=== PATIENT | female | born 1955 | race Caucasian/White ===

== ENCOUNTER 2023-03-28 07:19 | Observation (INO) ==
--- NOTE | 2023-02-23 12:33 | PAT Medication Instructions ---
Medication Instructions Date of Service February 23, 2023 Home Medications albuterol sulfate 90 mcg/actuation aerosol inhaler (Ventolin HFA) 2 puff inhalation Q6H PRN alprazolam 0.25 mg tablet 0.25 mg PO UD aspirin 81 mg tablet,delayed release 81 mg PO QAM budesonide 0.5 mg/2 mL suspension for nebulization 0.5 mg inhalation DAILY carvedilol 3.125 mg tablet 3.125 mg PO BID empagliflozin 10 mg tablet (Jardiance) 5 mg PO QAM lactase 3,000 unit tablet (Lactaid) 3,000 unit PO UD PRN levocetirizine 5 mg tablet (Xyzal) 5 mg PO HS losartan 100 mg tablet 100 mg PO QAM pantoprazole 40 mg tablet,delayed release 40 mg PO QAM potassium chloride 10 mEq capsule,extended release 20 meq PO BID rosuvastatin 20 mg tablet (Crestor) 20 mg PO 3XWK tiotropium bromide 2.5 mcg/actuation mist for inhalation (Spiriva Respimat) 2 puff inhalation QAM Lactobacillus acidophilus 10 billion cell capsule (Probiotic) 10,000 mmu cells PO HS acetaminophen 650 mg tablet,extended release 650 mg PO TID PRN alendronate 70 mg tablet (Fosamax) 70 mg PO WK benzonatate 200 mg capsule 200 mg PO BID PRN calcium 600 mg capsule 600 mg PO QAM carboxymethylcellulose sodium 1 % eye liquid gel drops 1 drp ophthalmic (eye) BID PRN cholecalciferol (vitamin D3) 125 mcg (5,000 unit) tablet (Vitamin D3) 125 mcg PO QAM coQ10 (ubiquinol) 200 mg capsule 400 mg PO QAM conjugated estrogens 0.625 mg/gram vaginal cream (Premarin) 0.625 mg vaginal 2XWK cyanocobalamin (vitamin B-12) 2,500 mcg tablet 2,500 mcg PO UD diclofenac sodium 1 % topical gel 2 g topical QID PRN diphenhydramine HCl 25 mg capsule (Benadryl) 25 mg PO TID PRN fiber 1 tab PO HS 02/22/23 [History Confirmed 02/22/23] fluticasone propionate 50 mcg/actuation nasal spray,suspension 1 spray intranasal BID lifitegrast 5 % eye drops in a dropperette (Xiidra) 1 drp ophthalmic (eye) AMPM salmeterol 50 mcg/dose blister powder for inhalation (Serevent Diskus) 1 inh inh alation BID triamcinolone acetonide 0.025 % topical cream 1 applic topical BID STOP 3 days before surgery empagliflozin 10 mg tablet (Jardiance) 5 mg PO QAM Continue as directed alprazolam 0.25 mg tablet 0.25 mg PO UD budesonide 0.5 mg/2 mL suspension for nebulization 0.5 mg inhalation DAILY rosuvastatin 20 mg tablet (Crestor) 20 mg PO 3XWK STOP taking 2 weeks before surgery (or as soon as possible if surgery is within 2 weeks) coQ10 (ubiquinol) 200 mg capsule 400 mg PO QAM STOP taking 24 hours before surgery conjugated estrogens 0.625 mg/gram vaginal cream (Premarin) 0.625 mg vaginal 2XWK diclofenac sodium 1 % topical gel 2 g topical QID PRN triamcinolone acetonide 0.025 % topical cream 1 applic topical BID DO NOT take the morning of surgery lactase 3,000 unit tablet (Lactaid) 3,000 unit PO UD PRN losartan 100 mg tablet 100 mg PO QAM potassium chloride 10 mEq capsule,extended release 20 meq PO BID alendronate 70 mg tablet (Fosamax) 70 mg PO WK benzonatate 200 mg capsule 200 mg PO BID PRN calcium 600 mg capsule 600 mg PO QAM cholecalciferol (vitamin D3) 125 mcg (5,000 unit) tablet (Vitamin D3) 125 mcg PO QAM cyanocobalamin (vitamin B-12) 2,500 mcg tablet 2,500 mcg PO UD diphenhydramine HCl 25 mg capsule (Benadryl) 25 mg PO TID PRN Take morning of surgery With a small sip of water, OTHERWISE NOTHING TO EAT OR DRINK AFTER MIDNIGHT: albuterol sulfate 90 mcg/actuation aerosol inhaler (Ventolin HFA) 2 puff inhalation Q6H PRN(use if needed; please bring with you to hospital day of surgery if possible) aspirin 81 mg tablet,delayed release 81 mg PO QAM (unless directed otherwise by surgeon) carvedilol 3.125 mg tablet 3.125 mg PO BID pantoprazole 40 mg tablet,delayed release 40 mg PO QAM tiotropium bromide 2.5 mcg/actuation mist for inhalation (Spiriva Respimat) 2 puff inhalation QAM acetaminophen 650 mg tablet,extended release 650 mg PO TID PRN(if needed) carboxymethylcellulose sodium 1 % eye liquid gel drops 1 drp ophthalmic (eye) BID PRN(if needed) fluticasone propionate 50 mcg/actuation nasal spray,suspension 1 spray intranasal BID lifitegrast 5 % eye drops in a dropperette (Xiidra) 1 drp ophthalmic (eye) AMPM salmeterol 50 mcg/dose blister powder for inhalation (Serevent Diskus) 1 inh inhalation BID Take evening before surgery albuterol sulfate 90 mcg/actuation aerosol inhaler (Ventolin HFA) 2 puff inhalation Q6H PRN(if needed) carvedilol 3.125 mg tablet 3.125 mg PO BID levocetirizine 5 mg tablet (Xyzal) 5 mg PO HS potassium chloride 10 mEq capsule,extended release 20 meq PO BID Lactobacillus acidophilus 10 billion cell capsule (Probiotic) 10,000 mmu cells PO HS acetaminophen 650 mg tablet,extended release 650 mg PO TID PRN(if needed) benzonatate 200 mg capsule 200 mg PO BID PRN(if needed) carboxymethylcellulose sodium 1 % eye liquid gel drops 1 drp ophthalmic (eye) BID PRN(if needed) diphenhydramine HCl 25 mg capsule (Benadryl) 25 mg PO TID PRN(if needed) fluticasone propionate 50 mcg/actuation nasal spray,suspension 1 spray intranasal BID lifitegrast 5 % eye drops in a dropperette (Xiidra) 1 drp ophthalmic (eye) AMPM salmeterol 50 mcg/dose blister powder for inhalation (Serevent Diskus) 1 inh inhalation BID Other Notes If you have any questions please call us at [phone] or [phone] or [phone] or [phone]
--- NOTE | 2023-03-02 09:52 | Anesthesiology Consultation ---
Date of Service March 02, 2023 Assessment & Plan (1) Encounter for pre-operative examination: Chart Review Chart Review: Acceptable Risk for Surgery (pending 2019 ECHO ) and Patient seen in Pre Admission Testing - Please fax for ECHO from 2019 ([facility] or [facility]) - Discussed anesthesia history with Dr. Calvo- patient can proceed as scheduled - Pt is NOT an ideal OPJ candidate due to comorbidities - Check BSG AM DOS Per PAT appt on 03/02/23, patient denies any recent travel or large group activities. Pt is vaccinated for Covid. Will leave to surgeon's discretion if preop Covid testing needed. Educated on importance of using Covid precautions one week prior to surgery Pt last seen by cardio 03/25/22= seen for follow up on CAD. Stable from cardiac standpoint. EKG in office reviewed- unchanged from previous. Denies complaints of angina and no evidence of volume overload. BP controlled. Congratulated on 10lb weight loss. Remain active/exercise as tolerated. LDL well controlled on statin. Continue current meds. Give the patient's clinical stability- no new non invasive tests ordered at this time Teaching & Discussion Pre-Anesthesia Teaching/Discussion Notes: Instructed NPO after midnight before surgery,except medications with 15 cc of water. Medication instructions provided according to the PAT guidelines. History Surgery Operation Date: 03/28/23 10:30 Proposed Procedures p Right Reverse Total Shoulder Arthroplasty - Junito Hwang, Height/Weight Height: 5 ft 1 in Weight: 61.9 kg Allergies Allergy/AdvReac Type Severity Reaction Status Date / Time phenazopyridine [From Azo] Allergy Severe swollen Verified 02/22/23 13:11 throat biotin Allergy Intermediate Rash Verified 01/26/23 10:53 lisinopril Allergy Intermediate cough Verified 02/22/23 13:11 montelukast [From Singulair] Allergy Mild Rash/dizzy Verified 02/22/23 13:11 nitrofurantoin Allergy Mild rash Verified 02/22/23 13:11 [From Macrobid] oxycodone Allergy Mild Vomiting Verified 02/22/23 13:11 lactose AdvReac Mild stomach Verified 02/22/23 13:11 pains Medications Home Medications Medication Instructions Recorded Confirmed Last Taken albuterol sulfate 90 mcg/actuation 2 puff inhalation Q6H PRN SOB 01/26/23 02/22/23 Unknown aerosol inhaler (Ventolin HFA) alprazolam 0.25 mg tablet 0.25 mg PO UD 01/26/23 02/22/23 Unknown aspirin 81 mg tablet,delayed 81 mg PO QAM 01/26/23 02/22/23 Unknown release budesonide 0.5 mg/2 mL suspension 0.5 mg inhalation DAILY 01/26/23 02/22/23 Unknown for nebulization carvedilol 3.125 mg tablet 3.125 mg PO BID 01/26/23 02/22/23 Unknown empagliflozin 10 mg tablet 5 mg PO QAM 01/26/23 02/22/23 Unknown (Jardiance) lactase 3,000 unit tablet (Lactaid) 3,000 unit PO UD PRN EATING MILK 01/26/23 02/22/23 Unknown PRODUCTS levocetirizine 5 mg tablet (Xyzal) 5 mg PO HS 01/26/23 02/22/23 Unknown losartan 100 mg tablet 100 mg PO QAM 01/26/23 02/22/23 Unknown pantoprazole 40 mg tablet,delayed 40 mg PO QAM 01/26/23 02/22/23 Unknown release potassium chloride 10 mEq 20 meq PO BID 01/26/23 02/22/23 Unknown capsule,extended release rosuvastatin 20 mg tablet (Crestor) 20 mg PO 3XWK 01/26/23 02/22/23 Unknown tiotropium bromide 2.5 2 puff inhalation QAM 01/26/23 02/22/23 Unknown mcg/actuation mist for inhalation (Spiriva Respimat) Lactobacillus acidophilus 10 10,000 mmu cells PO HS 02/22/23 02/22/23 Unknown billion cell capsule (Probiotic) acetaminophen 650 mg 650 mg PO TID PRN Pain 02/22/23 02/22/23 Unknown tablet,extended release alendronate 70 mg tablet (Fosamax) 70 mg PO WK 02/22/23 02/22/23 Unknown benzonatate 200 mg capsule 200 mg PO BID PRN Cough 02/22/23 02/22/23 Unknown calcium 600 mg capsule 600 mg PO QAM 02/22/23 02/22/23 Unknown carboxymethylcellulose sodium 1 % 1 drp ophthalmic (eye) BID PRN . 02/22/23 02/22/23 Unknown eye liquid gel drops cholecalciferol (vitamin D3) 125 125 mcg PO QAM 02/22/23 02/22/23 Unknown mcg (5,000 unit) tablet (Vitamin D3) coQ10 (ubiquinol) 200 mg capsule 400 mg PO QAM 02/22/23 02/22/23 Unknown conjugated estrogens 0.625 mg/gram 0.625 mg vaginal 2XWK 02/22/23 02/22/23 Unknown vaginal cream (Premarin) cyanocobalamin (vitamin B-12) 2,500 mcg PO UD 02/22/23 02/22/23 Unknown 2,500 mcg tablet diclofenac sodium 1 % topical gel 2 g topical QID PRN Pain 02/22/23 02/22/23 Unknown diphenhydramine HCl 25 mg capsule 25 mg PO TID PRN Itching 02/22/23 02/22/23 Unknown (Benadryl) fiber 1 tab PO HS 02/22/23 02/22/23 Unknown fluticasone propionate 50 1 spray intranasal BID 02/22/23 02/22/23 Unknown mcg/actuation nasal spray,suspension lifitegrast 5 % eye drops in a 1 drp ophthalmic (eye) AMPM 02/22/23 02/22/23 Unknown dropperette (Xiidra) salmeterol 50 mcg/dose blister 1 inh inhalation BID 02/22/23 02/22/23 Unknown powder for inhalation (Serevent Diskus) triamcinolone acetonide 0.025 % 1 applic topical BID 02/22/23 02/22/23 Unknown topical cream Past Medical History Medical History (Updated 03/02/23 @ 11:31 by Valeria Ornelas PA-C) Aortic valve sclerosis Asthma HAS NOT USED RESCUE INHALER RECENTLY Breathing controlled CAD (coronary artery disease) No stents or bypass Per cardio records- cardiac cath in 2009- showed "LM ok, LAD 20, LCx ok, RC A20; EF 40% ant., AL and inf HK, no MR Cardiac murmur FOLLOWS WITH JAS RICHARDS No significant murmur noted at 03/02/23 PAT appt Diabetes mellitus, type 2 Glucose controlled Diabetic neuropathy Mostly to feet- occ to hands Dry eye syndrome GERD (gastroesophageal reflux disease) Well controlled and stable Hiatal hernia Hyperlipidemia Hypertension Lactose intolerance Myocardial Infarction X 2 *AT AGE 42 (IN 1996) AND 2009 (both NSTEMIs per records) Stress incontinence Exercise / Class Metabolic Activity II 4-5 Yardwork/Stairs/Walk up hill (ONE FLIGHT OF STAIRS - NO CHEST PAIN OR SOB ) Past Family History Family History Other No family history of adverse response to anesthesia Past Surgical History Surgical History (Updated 03/02/23 @ 14:27 by Valeria Ornelas PA-C) Chalazion left eye, unspecified eyelid CYST REMOVED H/O bilateral oophorectomy H/O detached retina repair RT H/O elbow surgery LEFT ULNAR NERVE RELEASE H/O nasal septoplasty H/O: hysterectomy [facility]- HAD LOCAL ANESTHESIA WITH SEDATION TO ELBOW - FELT PARALYZED WITH FULL BODY - NO ISSUES WITH PRIOR SURGERIES (ANESTHESIA RECORDED SCANNED INTO CHART FROM 1999) - ONE EPISODE OF VOMITING DURING SURGERY (HYSTERECTOMY/SACRICILOPEXY MESH) DUE TO PAIN MEDICATION PER PATIENT History of bilateral tubal ligation History of bladder surgery BLADDER TACK WITH MESH History of cardiac cath X 3 (LAST 2009 AT [facility]) NO STENTS History of cataract surgery RT/LEFT History of cholecystectomy History of colonoscopy History of dilatation and curettage X 2 History of esophagogastroduodenoscopy (EGD) History of tonsillectomy [place] teeth removed Past Anesthesia History No Hx of Anesthesia Complications (WITH EXCEPTION TO 1999 SURGERY ) and No Family Hx of Anesthesia Complications History of PONV No Hx of Motion Sickness and History of PONV Social History Smoking Status: Never smoker Hx Alcohol Use: Yes Alcohol type: wine alcohol intake frequency: holidays/special occasions only substance use type: does not use Review of Systems Hx of snoring- no witnessed apnea - hx of sleep study years ago- no CHAPIS Patient denies chest pain, shortness of breath, dyspnea on exertion, cough, wheezing, palpitations. No hx of seizures, stroke. No hx of blood clots or blood transfusions Physical Exam Vital Signs VITALS BP 139/78 P 61 TEMP 97.4 SP02 95% RESP 16 Constitutional no acute distress ENMT Mouth: no TMJ clicking Thyromental Distance: < 3.5 Finger Breadths (3.0) Mallampati Class: I Mouth / Teeth: 1. Permanent implant Neck neck extension not limited Respiratory normal respiratory effort; no respiratory distress Auscultation: lungs clear to auscultation bilaterally; no wheezes Cardiovascular Rate/Rhythm: regular rate and regular rhythm Heart Sounds: no murmur Vessels: no carotid bruit Musculoskeletal Spine: no pain with cervical ROM Extremities: extremities normal to inspection Psychiatric Orientation: alert Lab Results Anesthesia Preop Results Results Anesthesia Widget: WBC 5.95 K/ul (4.8-10.8) 03/02/23 Hgb 13.7 g/dl (12.0-16.0) 03/02/23 Hct 41.2 % (37.0-47.0) 03/02/23 Plt 205 K/uL (130-400) 03/02/23 Na 141 mmol/L (136-145) 03/02/23 K 4.7 mmol/L (3.5-5.1) 03/02/23 Cl 110 mmol/L (98-107) H 03/02/23 CO2 25 mmol/L (21-32) 03/02/23 BUN 18 mg/dl (6-23) 03/02/23 Creat 0.74 mg/dl (0.6-1.2) 03/02/23 Glucose Level 95 mg/dl (70-99(Fasting)) 03/02/23 PT 11.0 Seconds (9.0-12.0) 03/02/23 PTT 27.7 Seconds (21.0-31.0) 03/02/23 INR 1.0 (0.9-1.1) 03/02/23 HA1c 6.2 % (4.5-5.6) H 03/02/23 Blood Type A Positive 03/02/23 Antibody Screen NEGATIVE 03/02/23 Testing Electrocardiogram Date: 03/02/23 Findings: + SB @ (51bpm) Otherwise normal EKG per cardio Chest X-Ray Date: 03/02/23 Findings: + NAD FINDINGS: PA and lateral chest radiographs are obtained. No prior studies are available for comparison at the time of dictation. The cardiomediastinal silhouette is unremarkable. The lungs and pleural spaces are clear. There is no pneumothorax. The skeletal structures are osteopenic. The bony thorax appears intact. Cholecystectomy clips are noted in the right upper quadrant. IMPRESSION: No active disease in the chest. COVID-19 Risk Screen Screening Information COVID-19 Screen Date: 03/02/23 Exposure 21 Days Family/Household +COVID Last 21 Days: No Exposure 10 Days Any COVID Exposure Last 10 Days: No Symptoms Last 10 Days Experienced COVID Sx Last 10 Days: No + COVID 0-90 Days COVID + in Last 0-90 Days: No Risk Plan COVID Risk Plan: No Risk Identified Patient Education COVID Preop Screening Education Complete: Yes
[~2023-03-28 07:19] MED LIST: ACETAMINOPHEN 500 MG TAB PO SCH; BUPIVACAINE 0.5 % 5 MG/1 ML PF 10ML VIAL ONE; FAMOTIDINE 20 MG TAB PO SCH; GABAPENTIN 300 MG CAP PO SCH; LR 15ML/HR IV SCH; LR 60ML/HR IV SCH; ORTHO JOINT MIX INFIL SCH; TRANEXAMIC ACID 1,000 MG **IV Intra-op IV SCH; TRANEXAMIC ACID 1,000 MG **IV Pre-op IV SCH; ceFAZolin 2000MG 2,000 MG/15 ML SYR IV SCH; dexAMETHasone 4 MG TAB PO SCH
[2023-03-28] MEDS ORDERED: DEXAMETHASONE SOD INJ 4 MG/ML VIAL ONE (08:19)
[2023-03-28] MEDS ORDERED: MIDAZOLAM HCL 1 MG/ML 2ML VIAL ONE (08:19)
[2023-03-28] MEDS ORDERED: GLYCOPYRROLATE 0.2 MG/ML VIAL ONE (08:19)
[2023-03-28] MEDS ORDERED: fentaNYL citrate PF 100 MCG/2 ML VIAL ONE (08:19)
[2023-03-28] MEDS ORDERED: ONDANSETRON INJ 2 MG/ML 2 ML VIAL ONE (08:19)
--- NOTE | 2023-03-28 09:15 | History & Physical Bridge Note ---
Date of Service March 28, 2023 History & Physical Bridge Note I have examined the patient, reviewed the History & Physical and in the interval since the performance of the History & Physical I have noted the following changes of clinical significance: no changes noted
[2023-03-28] MEDS ORDERED: ORTHO JOINT ANESTHETIC ONE (10:01)
[2023-03-28] MEDS ORDERED: PROMETHAZINE HCL 6.25 MG in SODIUM CHLORIDE 0.9% 50 ML IV PRN (10:07)
[2023-03-28] MEDS ORDERED: KETOROLAC 30 MG/ML VIAL IV PRN (10:07)
[2023-03-28] MEDS ORDERED: ONDANSETRON INJ 2 MG/ML 2 ML VIAL IV PRN ×2 (10:07→12:56)
[2023-03-28] MEDS ORDERED: fentaNYL citrate PF 100 MCG/2 ML VIAL IV PRN (10:07)
[2023-03-28] MEDS ORDERED: ATROPINE SULFATE 0.1 MG/ML 10ML SYR IV PRN (10:07)
[2023-03-28] MEDS ORDERED: SUGAMMADEX SODIUM 200 MG/2 ML VIAL IV ONE (10:54)
[2023-03-28] MEDS ORDERED: ROCURONIUM BROMIDE 10 MG/ML 5 ML VIAL IV ONE (10:54)
--- NOTE | 2023-03-28 12:39 | Anesthesiology Progress Note ---
Date of Service March 28, 2023 Anesthesia Post Procedure Vital Signs Vital Signs: Temp Pulse Resp BP Pulse Ox O2 Del Method O2 Flow Rate 03/28/23 12:35 36.3 C L 61 16 149/71 H 96 Room Air 03/28/23 12:25 61 18 149/71 H 96 Room Air 03/28/23 12:15 67 16 156/69 H 96 Room Air 03/28/23 12:05 62 16 161/75 H 100 Oxymask 4 03/28/23 11:55 65 16 166/88 H 100 Oxymask 6 03/28/23 11:45 36 C L 67 12 170/70 H 97 Oxymask 10 03/28/23 07:45 36.6 C 54 L 18 128/58 L 100 Room Air Pain Intensity Right Shoulder: Pain Intensity: 0 Transfer of Care Handoff Completed per policy Notes Mental Status: alert / awake / arousable Patient Amnestic to Procedure: Yes Nausea / Vomiting: adequately controlled Pain: adequately controlled Airway Patency, RR, SpO2: stable & adequate BP & HR: stable & adequate Hydration State: stable & adequate Anesthetic Complications: no major complications apparent
[2023-03-28] MEDS ORDERED: SODIUM CHLORIDE 0.9% 1000ML 1,000 ML IV SCH (12:56)
[2023-03-28] MEDS ORDERED: MAGNESIUM HYDROXIDE SUSP 30 ML UDC PO PRN (12:56)
[2023-03-28] MEDS ORDERED: ALBUTEROL HFA 8 GM INHALER INH PRN (12:56)
[2023-03-28] MEDS ORDERED: NALOXONE HCL 0.4 MG/1 ML VIAL/CARP IV PRN (12:56)
[2023-03-28] MEDS ORDERED: BENZONATATE 100 MG CAPSULE PO PRN (12:56)
[2023-03-28] MEDS ORDERED: HYDROmorphone INJ 0.5 MG/0.5 ML SYR IV PRN (12:56)
[2023-03-28] MEDS ORDERED: bisacodyL 10 MG SUPP PR PRN (12:56)
[2023-03-28] MEDS ORDERED: CARBOXYMETHYLCELLULOSE SODIUM 1% OP PRN (12:56)
[2023-03-28] MEDS ORDERED: PHARMACY GLYCEMIC MGMT CONSULT PRN (12:56)
[2023-03-28] MEDS ORDERED: traMADol HCL 50 MG TABLET PO PRN (12:56)
[2023-03-28] MEDS ORDERED: METOCLOPRAMIDE HCL INJ 5 MG/ML 2 ML VIAL IV PRN (12:56)
[2023-03-28] MEDS ORDERED: diphenhydrAMINE Capsule 25 MG CAP PO PRN (12:56)
[2023-03-28] MEDS ORDERED: NovoLIN-N (NPH) PER UNIT CHARGE SQ ONE (13:30)
--- NOTE | 2023-03-28 13:43 | Operative Report ---
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 A tenodesis was opted. This was a separate and distinct portion of the procedure. For these reasons, a CPT code modifier 59 will be added to this case. Implants used: I used a [employer] Comprehensive reverse total shoulder arthroplasty system with a size 9 press fit micro humeral stem, a +6 offset humeral tray and a standard humeral bearing, a 25 mm small augment baseplate with a 6.5 mm central screw and superior and inferior locking screws, and a size 36 mm eccentric glenosphere. Nevin arrived at [facility] for the above procedure. She was seen in the preoperative holding area and the operative extremity was identified and signed. She was given a preoperative antibiotic, TXA, and an interscalene nerve block. She was taken back to the operating room, laid on table in supine position, and put under general anesthesia. She was then put into the beachchair position. The shoulder was then prepped and draped in sterile fashion. A timeout was done and the patient and the operative extremity was properly identified. A deltopectoral approach was used. Dissection was taken down through the fascia and the deltoid was retracted laterally and the conjoined tendon was retracted medially. The anterior shoulder was exposed. The biceps groove was opened up and the biceps tendon was examined extensively. The biceps tendon demonstrated enlargement and inflammatory changes consistent with longstanding inflammation in the context of osteoarthritis and cuff arthropathy. The long head of the biceps tendon was then tenodesed to the upper border of the pectoralis major. This was a separate and distinct portion of the procedure. The subscapularis was then directly released off the lesser tuberosity with a peel technique. The inferior capsule was released and the humeral head was dislocated. A canal finding reamer was sent down the center of the humeral canal. Sequential reaming up to a size 9 reamer was done. Off that reamer, a proximal humeral resection guide was placed. The proximal humerus was resected at 135 of inclination and 25 of retroversion. Osteophytes were then removed and the glenoid was exposed. Time was spent doing a complete capsular and labral release. The glenoid guide was then placed in the inferior aspect of the glenoid. A 3.2 mm Steinmann pin was then placed into the glenoid vault at 10 of inclination. The glenoid baseplate was then reamed. The final size 25 mm small augment baseplate was then impacted in the place. A 6.5 mm central screw was then placed followed by superior and inferior locking screws. A 36 mm eccentric glenosphere was then impacted into place. Surrounding soft tissues were then injected with 100 cc an orthopedic pain control cocktail. The proximal humerus was then exposed. Sequential broaching of the humerus up to a size 9 broach was done. Off that broach a +6 offset humeral tray was trialed. The shoulder was then reduced, brought through a full range of motion, and felt to be stable. The shoulder was then dislocated and the broach was removed. The final size 9 micro press-fit humeral stem was then impacted into place. A standard humeral bearing was then snapped onto a +6 offset humeral tray. The humeral tray was then impacted onto the humeral stem. The shoulder was once again reduced, brought through a full range of motion, and felt to be stable. The subscapularis was tenodesed back to the lesser tuberosity with 45 degrees of external rotation. A dilute betadyne lavage was then done for 3 minutes. The joint was then irrigated with normal saline solution. Hemostasis was obtained. The interval was closed with 2-0 Vicryl suture. The skin was then closed with 2-0 Vicryl and jeff. A Silverlon dressing was placed and the arm was rested in a regular arm sling. She was then extubated and transferred to a hospital bed. She taken to the postanesthesia care unit in stable condition. She tolerated the procedure well. Junito Bartlett PA-C, was present for the entire procedure. He was critical for patient positioning, prepping, draping, retraction exposure, wound closure and application of sterile dressing. I attest to the content of the Intraoperative Record and any orders documented therein. Any exceptions are noted below. I attest to the content of the Intraoperative Record and any orders documented therein. Any exceptions are noted below.
[2023-03-28] MEDS: INSULIN ASPART PER UNIT CHARGE SC SCH ×3 (13:56→21:54)
--- NOTE | 2023-03-28 14:15 | Pharmacy Report ---
Pharmacy Glycemic Short Note 2 - Date of Service March 28, 2023 - Glycemic Short BSG Results (Last 24 hours): 03/28/23 03/28/23 11:49 13:22 POC Glucose 130 H 149 H OUTPATIENT ANTIDIABETIC REGIMEN: * Jardiance 5 mg po HS * HbA1C = 6.2% (03/02/23) ASSESSMENT: * Ms Millan is a 67 y/o F with a PMH of T2DM on one oral medication who presents for shoulder surgery. * Patient is POD 0. She received PO dexamethasone 8 mg preop + IV dexamethasone 4 mg during surgery. * Post-op BSGs are 130 and 149 mg/dL. * Due to steroids, will give NPH 0.4 units (25 units) SQ x 1. Re-evaluate tomorrow. * Novolog weight-based stress of 3. PLAN FOR INPATIENT GLYCEMIC CONTROL: * Hold outpatient oral diabetes medications * Basal insulin * NPH 25 units SQ x 1 * Bolus insulin * NovoLog per scale ACHS or Q6hrs while NPO * Goal Range: Low 110 mg/dL - High 140 mg/dL * Correction Factor: 30 mg/dL/unit * Nutritional / Prandial insulin per carb ratio of 1 unit per 10 grams CHO consumed
[2023-03-28] MEDS: KETOROLAC TROMETHAMINE 15 MG/ML VIAL IV SCH ×2 (14:27→20:27)
[2023-03-28] MEDS: ACETAMINOPHEN 500 MG TAB PO SCH ×2 (14:27→22:19)
--- NOTE | 2023-03-28 15:20 | XRay Report ---
XR shoulder RT min 2V routine HISTORY: 67 years-old Female Post shoulder surgery right shoulder arthroplasty COMPARISON: Chest radiograph 03/02/2023 TECHNIQUE: 2 views of the right shoulder FINDINGS: Total joint arthroplasty demonstrates satisfactory alignment. No acute fracture or unexpected opaque foreign body. Overlying skin jeff are present along with expected postoperative soft tissue swelli ng with deep tissue air. Cholecystectomy. IMPRESSION: Total joint arthroplasty with expected postoperative changes. ACT 112: Negative or not required by law. The above report was generated using voice recognition software. It may contain grammatical, syntax o r spelling errors. Electronically signed by: Rolando Loza M.D. 03/28/2023 3:19 PM
[2023-03-28] MEDS ORDERED: ARTIFICIAL TEARS OP PRN (17:00)
[2023-03-28] MEDS: ceFAZolin 2000MG 2,000 MG/15 ML SYR IV SCH (17:51)
[2023-03-28] MEDS: carvediloL 3.125 MG TAB PO SCH (20:25)
[2023-03-28] MEDS: POTASSIUM CHLORIDE CRTAB 20 MEQ TABCR PO SCH (20:26)
[2023-03-28] MEDS: DOCUSATE SODIUM 100 MG CAP PO SCH (20:26)
[2023-03-28] MEDS: TRIAMCINOLONE ACET 0.025% CR 15 GM TUBE TOP SCH (20:27)
[2023-03-28] MEDS: FLUTICASONE PROPIONATE NA SPR 16 GM BTL SCH (20:28)
[2023-03-28] MEDS ORDERED: SENNA 8.6 MG TAB PO SCH (21:00)
[2023-03-28] MEDS ORDERED: CETIRIZINE HCL 10 MG TABLET PO SCH (21:00)
[2023-03-28] MEDS ORDERED: ALPRAZolam 0.25 MG TABLET PO SCH (21:00)
[2023-03-29] MEDS: KETOROLAC TROMETHAMINE 15 MG/ML VIAL IV SCH ×2 (01:49→09:02)
[2023-03-29] MEDS: ceFAZolin 2000MG 2,000 MG/15 ML SYR IV SCH (01:49)
[2023-03-29] MEDS: ACETAMINOPHEN 500 MG TAB PO SCH (05:33)
[2023-03-29 05:57] VITALS: TEMP 97.7
--- NOTE | 2023-03-29 07:18 | Orthopedic Progress Note ---
Date of Service March 29, 2023 Assessment & Plan (1) Status post reverse total replacement of right shoulder: Overall she is doing very well. She is not having much pain in the right shoulder. She will be seen by physical therapy today for ambulation and range of motion exercises. She can be discharged home later today. She will follow- up with orthopedics in 2 weeks. Bashir Rooney was seen and examined at bedside this morning. Overall she is doing fairly well. She is not having much pain in the right shoulder. She was able to get some sleep last night. She has no complaints.. Review of Systems All systems reviewed & are unremarkable except as noted in HPI & below. Physical Exam On physical examination of the right shoulder, the dressing is clean and dry. She is wearing her sling as instructed. The nerve block is still in effect.. Results & Data Results & Data Laboratory Results . Diagnostic Findings Postoperative x-rays of the right shoulder show the prosthesis to be in anatomic alignment without any evidence of fracture, screws, or loosening.. PG Care Time/CCT Total # of Minutes Spent Total Time Spent with Patient: Total time spent is greater than 50% in coordination of care (as documented) at patient's floor/unit and/or counseling patient: Coding Level of Care Code 52290 Post Operative Follow-Up Diagnoses Status post reverse total replacement of right shoulder Z96.611
--- NOTE | 2023-03-29 07:19 | Discharge Summary ---
Date of Service March 29, 2023 Principal Diagnosis Same as "Discharge Diagnosis" noted below under Discharge Instructions. Discharge Exam On physical examination of the right shoulder, the dressing is clean and dry. She is wearing her sling as instructed. The nerve block is still in effect.. Discharge Data Procedures Performed Operation Date: 03/28/23 10:00 Actual Procedures p Right Reverse Total Shoulder Arthroplasty(Right) - Junito Hwang DO Ordered Studies 03/28/23 05:00 US - OR guided needle placemen Routine Hospital Course (1) Status post reverse total replacement of right shoulder: On March 28, 2023 Nevin arrived at [facility] and underwent a right reverse shoulder replaced without complication. She had a general anesthetic and a right interscalene nerve block. Postoperatively she was placed in a sling and transferred to the general orthopedic floors. Her hospital course was uneventful. On postop day #1, her vital signs were stable and her pain was well controlled. She was able to participate well with physical therapy doing ambulation and range of motion exercises. She was then discharged home. She will follow-up with orthopedics in 2 weeks. PG Care Time/CCT Total # of Minutes Spent Total Time Spent with Patient: Total time spent is greater than 50% in coordination of care (as documented) at patient's floor/unit and/or counseling patient: Discharge Plan Discharge Items Patient Disposition: Home - Home Health Services Reason For Visit: POST OP Discharge Diagnosis: Right reverse shoulder replacement Activity: As commented below Non-emergency contact: Surgeon Call non-emergency contact if: your wound has increased redness and your wound has increased drainage Follow-up/Referrals: [place] Caldwell DO [Primary Care Provider] - Diet: Regular Addtl Attending Provider Instructions: Activity and Therapy Recommendations: * If you are using [facility] then therapy will be provided at your home until they feel you have accomplished all of your goals. * If you are using [facility] then Physical Therapy will be provided until they feel you are ready to start Outpatient Physical Therapy. * If you are not using home therapy then Outpatient Physical Therapy should start about 3-5 days from your day of surgery. Therapy will last about 8-12 weeks * Wear your sling for 3 weeks, unless otherwise instructed. You may remove your sling to shower and to dress, but otherwise, you should be in your sling at all times, including while sleeping * The shoulder replacement is very stable and you can use your hand while in the sling * You were shown a series of exercises in the hospital. Do these exercises daily including the exercises you were shown in physical therapy. Medications: * Narcotic You will likely be sent home from the hospital with a prescription for the narcotic pain medication that worked best throughout your stay. * Other medications may be prescribed for specific circumstances. If you have any questions, please call the office at . * Resume previous home medications unless otherwise instructed Dressing Care: Leave the Silverlon dressing in place for 7 days. After 7 days you may remove the dressing. If the incision is not draining then you may leave the jeff open to air. If there is a little bit of drainage or if the jeff are getting stuck on your clothing then cover the incision with a dry dressing. The jeff will be removed at your 2 week follow-up appointment. Showering: You may shower with the Silverlon dressing in place. Do not let the shower spray hit the dressing directly. Pat the Silverlon dressing dry. If the dressing becomes wet underneath, then simply remove the dressing. Keep the incision dry until you are 7 days out from the day of surgery. After 7 days you may remove the Silverlon dressing and shower with the jeff exposed. Let soapy water run over the jeff and pat them dry. Do not scrub or soak the incision. Things To Watch For: * Drainage from the incision site that occurs more than one week after your surgery. * Increased redness at the incision site. * Fever above 102 degrees Fahrenheit. * Unusual chest pain or shortness of breath. * Call [facility] at with any of the above problems Follow-Up Visit: Follow-up with Dr. Hwang's PA (Junito Bartlett) 2-3 weeks after your day of surgery. He will remove your jeff and answer any questions. If you have any additional questions or concerns, Dr Hwang is usually in the office at the same time and will be available An appointment was probably scheduled when you signed-up for surgery in the office. If you have any questions call More detailed instructions as well as Frequently Asked Questions were provided in a folder by our office when you signed-up for surgery. Please review these instructions when you get home. If you have any further questions or concerns, please feel free to call the office at [phone] Pending Studies at Discharge: No Stand-Alone Forms: My [facility], Smoking Cessation Medications and DC Order Prescriptions: New tramadol 50 mg tablet 50 mg PO Q6H PRN (Reason: pain) Qty: 30 0RF Continued losartan 100 mg tablet 100 mg PO QAM potassium chloride 10 mEq capsule, extended release 20 meq PO BID pantoprazole 40 mg tablet,delayed release (DR/EC) 40 mg PO QAM carvedilol 3.125 mg tablet 3.125 mg PO BID Rx Instructions: must administer with a meal/food Jardiance 10 mg tablet 5 mg PO QAM alprazolam 0.25 mg tablet 0.25 mg PO UD Patient Comments: takes 0.5 tablet at hs levocetirizine [Xyzal] 5 mg tablet 5 mg PO HS rosuvastatin [Crestor] 20 mg tablet 20 mg PO 3XWK Spiriva Respimat 2.5 mcg/actuation mist 2 puff inhalation QAM albuterol sulfate [Ventolin HFA] 90 mcg/actuation HFA aerosol inhaler 2 puff inhalation Q6H PRN (Reason: SOB) budesonide 0.5 mg/2 mL suspension for nebulization 0.5 mg inhalation DAILY aspirin 81 mg tablet,delayed release (DR/EC) 81 mg PO QAM lactase [Lactaid] 3,000 unit tablet 3,000 unit PO UD PRN (Reason: EATING MILK PRODUCTS) Rx Instructions: administer with meals and/or snacks alendronate [Fosamax] 70 mg Tablet 70 mg PO WK Patient Comments: TAKES WED acetaminophen [Tylenol Arthritis] 650 mg Tablet Extended Release 650 mg PO TID PRN (Reason: Pain) Premarin 0.625 mg/gram Cream 0.625 mg VAGINAL 2XWK fiber Tablet 1 tab PO HS fluticasone propionate 50 mcg/actuation [place],Suspension 1 spray INTRANASAL BID Rx Instructions: administer into each nostril cholecalciferol (vitamin D3) [Vitamin D3] 125 mcg (5,000 unit) Tablet 125 mcg PO QAM coQ10 (ubiquinol) 200 mg Capsule 400 mg PO QAM Probiotic 10 billion cell Capsule 10,000 mmu cells PO HS cyanocobalamin (vitamin B-12) 2,500 mcg Tablet 2,500 mcg PO UD Patient Comments: TAKES .75 TABLET 3XWK Xiidra 5 % Dropperette 1 drp OPHTHALMIC (EYE) AMPM Rx Instructions: administer approximately 12 hours apart triamcinolone acetonide 0.025 % Cream 1 applic TOPICAL BID diphenhydramine HCl [Benadryl] 25 mg Capsule 25 mg PO TID PRN (Reason: Itching) carboxymethylcellulose sodium [Refresh] 1 % Drops, Liquid Gel 1 drp OPHTHALMIC (EYE) BID PRN (Reason: .) calcium 600 mg Capsule 600 mg PO QAM benzonatate 200 mg Capsule 200 mg PO BID PRN (Reason: Cough) Serevent Diskus 50 mcg/dose Blister With Device 1 inh INHALATION BID diclofenac sodium [Voltaren] 1 % Gel 2 g TOPICAL QID PRN (Reason: Pain) Rx Instructions: apply to single elbow, wrist or hand; for hand includes palm/fingers/back of hand Admission Data Admit Date/Time: 03/28/23 11:49 Attending Provider: Junito Hwang Admit Provider: Junito Hwang Primary Care Provider: [place] Caldwell
[2023-03-29] MEDS ORDERED: BUDESONIDE 0.5 MG/2 ML VIAL (PULMICORT) INH SCH (08:00)
[2023-03-29 08:45] VITALS: BP 152/70; PULSE 68; O2SAT 95
[2023-03-29] MEDS: INSULIN ASPART PER UNIT CHARGE SC SCH (08:46)
[2023-03-29] MEDS: carvediloL 3.125 MG TAB PO SCH (08:50)
[2023-03-29] MEDS: DOCUSATE SODIUM 100 MG CAP PO SCH (08:56)
[2023-03-29] MEDS: FLUTICASONE PROPIONATE NA SPR 16 GM BTL SCH (08:57)
[2023-03-29] MEDS: TRIAMCINOLONE ACET 0.025% CR 15 GM TUBE TOP SCH (08:57)
[2023-03-29] MEDS ORDERED: ROSUVASTATIN CALCIUM 20 MG TAB PO SCH (09:00)
[2023-03-29] MEDS ORDERED: MULTIVITAMIN TAB PO SCH (09:00)
[2023-03-29] MEDS ORDERED: ASPIRIN 81 MG ECTAB PO SCH (09:00)
[2023-03-29] MEDS ORDERED: UMECLIDINIUM BROMIDE 62.5MCG/BLISTER 7 PUFFS/INHALER INH SCH (09:00)
[2023-03-29] MEDS ORDERED: LOSARTAN POTASSIUM 50 MG TAB PO SCH (09:00)
[2023-03-29] MEDS ORDERED: PANTOprazole 40 MG TAB PO SCH (09:00)
[2023-03-29] MEDS ORDERED: OLODATEROL HCL 2.5MCG/ACTUATION 60 PUFFS/INHALER INH SCH (09:00)
[2023-03-29] MEDS: POTASSIUM CHLORIDE CRTAB 20 MEQ TABCR PO SCH (09:02)
[2023-03-30] MEDS ORDERED: ALENDRONATE SODIUM 70 MG TAB PO SCH (06:30)
== END 2023-03-29 11:22 | disposition home health service (06) ==
LOC: ASU 07:19 → 3E 07:19